=== PATIENT | female | born 1985 | race Caucasian/White ===

== ENCOUNTER 2020-05-10 14:19 | Emergency (ER) | payer BC, SELFPAY ==
--- NOTE | 2020-05-10 14:21 | ED.GENADULT ---
HPI - General Adult General Chief complaint: Chest Pain Stated complaint: chest papalations Time Seen by Provider: 05/10/20 14:21 Source: patient Mode of arrival: ambulatory Limitations: no limitations History of Present Illness HPI narrative: 34-year-old female patient presents to the [facility] with complaints of chest pain, lightheadedness, dizziness and palpitations. Patient states that it started yesterday was intermittent, however today has been more consistent and states that she feels lightheaded, dizzy, nausea and feels kind of clammy. Patient states that her was positive for Covid and they are actually on the last day of quarantine. Patient states she has tested negative but that was early in her quarantine and feels like she might have Covid. Patient denies any vomiting or diarrhea. Denies any shortness of breath or cough. Denies fevers. Related Data Home Medications Medication Instructions Recorded Confirmed No Home Medications 05/10/20 05/10/20 Allergies Allergy/AdvReac Type Severity Reaction Status Date / Time codeine Allergy Unknown Verified 02/05/10 13:51 Review of Systems Review of Systems: Narrative: CONSTITUTIONAL: Denies fever, chills, or sweats. Positive clammy and sweaty EYES: Denies visual changes, redness, or discharge. ENT: Denies rhinorrhea, congestion, sore throat, or otalgia. CARDIOVASCULAR: Positive midsternal chest pain, positive palpitations, denies edema. RESPIRATORY: Denies cough or dyspnea. GASTROINTESTINAL: Denies abdominal pain, positive nausea, denies vomiting, or diarrhea. GENITOURINARY: Denies dysuria or hematuria. SKIN: Denies rash or itching. MUSCULOSKELETAL: Denies back pain, joint pain, or myalgia. NEUROLOGIC: Denies headache, numbness, or weakness. Positive lightheadedness and dizziness PSYCHIATRIC: Denies anxiety or depression. [facility] Past Medical History Medical History (Updated 05/10/20 @ 14:51 by ERROL Carlisle) Fracture Left distal radius ulnar in 2010 Surgical History Surgical History (Updated 05/10/20 @ 14:26 by ERROL Carlisle) History of orthopedic surgery Left wrist History of tonsillectomy Family History Family History Mother Family history of lupus erythematosus Social History Social History Smoking status: Never smoker Alcohol intake: current Comments At the time of my signature I agree with nursing past medical history, surgical, social, and family history. There is no relevant family history pertinent to the presenting complaint. Exam Narrative: Exam Narrative: GENERAL: Well-appearing, well-nourished, and in no acute distress. HEAD: Normocephalic, atraumatic. EYES: PERRLA and EOMI. ENT: Nares clear, no rhinorrhea or epistaxis. Mucous membranes moist. Posterior pharynx with no erythema, tonsillectomy, exudates or lesions present. Bilateral TMs are clear with no erythema or foreign bodies in the canal. NECK: Supple. No lymphadenopathy CHEST: Clear to auscultation. No respiratory distress. Patient able talk in clear complete sentences. No tripoding noted. HEART: Regular rate and rhythm. No murmur heard. Normal peripheral pulses. ABDOMEN: Soft, nontender, nondistended, normal active bowel sounds. EXTREMITIES: Normal range of motion. No edema. SKIN: Warm, dry, no rash. NEURO: No focal deficits. Alert and oriented x3. Course Vital Signs Vital signs: Vital Signs Temperature 36.6 C 05/10/20 14:36 Pulse Rate 88 05/10/20 14:36 Respiratory Rate 05/10/20 14:36 Blood Pressure 146/72 H 05/10/20 14:36 Pulse Oximetry 99 05/10/20 14:36 Temperature 36.6 C 05/10/20 14:36 Pulse Rate 88 05/10/20 14:36 Respiratory Rate 05/10/20 14:36 Blood Pressure 146/72 H 05/10/20 14:36 Pulse Oximetry 99 05/10/20 14:36 Vital signs reviewed The patient has been informed that they may hav
[2020-05-10 14:36] VITALS: BP 146/72; PULSE 88; RESP 20; TEMP 36.6; O2SAT 99
--- NOTE | 2020-05-10 14:42 | ECG_ITS ---
Measurements Intervals Nelson Rate: 65 P: 65 MS: 159 QRS: 67 QRSD: 95 T: 57 QT: 360 QTc: 375 Interpretive Statements SINUS RHYTHM WITH SINUS ARRHYTHMIA BASELINE ARTIFACT- V6 NORMAL ECG Electronically Signed On 05-11-2020 7:53:16 HAND ALTERATIONS TAILOR by Noe Arenas D.O.
--- NOTE | 2020-05-10 14:44 | PC.NURSE ---
Pallavi ESPINOZA called [facility] with report
[2020-05-10] MEDS: ASPIRIN 81 MG CHEWABLE TABLET 324 MG PO (14:48)
--- NOTE | 2020-05-10 14:49 | PC.NURSE ---
appropriate paperwork for transfer signed report called to Margarita FENTON
== END 2020-05-10 14:53 | disposition short-term general hospital (02) ==
PROVIDERS: Emergency Provider Nurse Practitioner Family; PCP Family Medicine
DX: R07.9 Chest pain, unspecified (principal)
CPT/HCPCS: 93005; 99213; A9270; G0463

== ENCOUNTER 2022-03-21 10:08 | Emergency (ER) | payer BC, SELFPAY ==
[2022-03-21 10:41] VITALS: BP 140/70; PULSE 79; RESP 18; TEMP 36.8; O2SAT 100
--- NOTE | 2022-03-21 10:51 | ED.GENADULT ---
HPI - General Adult General Chief complaint: Anxiety Stated complaint: hot flashes,chills Time Seen by Provider: 03/21/22 10:52 Source: patient and RN notes reviewed Mode of arrival: ambulatory Limitations: no limitations History of Present Illness HPI narrative: 36-year-old female presents to the [facility] with complaints of feeling like her heart is racing intermittently but states her Apple watch her heart rate is normal. Finds that her mind is racing. reports hot flashes. Symptoms started yesterday. Denies any increased stress in life. Denies any recent is to be depressed. Denies suicidal or homicidal thoughts. States when she is at rest the symptoms are worse. Patient denies any chest pain, abdominal pain. Denies any fevers. Has an appointment tomorrow at 9:[address] Joaquin is office. Related Data Home Medications Medication Instructions Recorded Confirmed No Home Medications 05/10/20 03/21/22 Allergies Allergy/AdvReac Type Severity Reaction Status Date / Time codeine Allergy Unknown Verified 03/21/22 10:50 Review of Systems Review of Systems: All systems reviewed & are unremarkable except as noted in HPI and below Constitutional: Constitutional: Reports no additional constitutional complaints, Denies chills and Denies fever(s) Eyes: Eyes: Reports no additional eye complaints ENT: Reports system reviewed and no additional complaints, except as documented Cardiovascular: Cardiovascular: Reports no additional cardiovascular complaints Respiratory: Respiratory: Reports no additional respiratory complaints Gastrointestinal: Gastrointestinal: Reports no additional gastrointestinal complaints Musculoskeletal: Musculoskeletal: Reports no additional musculoskeletal complaints Integumentary/Breasts: Skin/Breast: Reports system reviewed and no additional complaints, except as docu Neurologic: Reports system reviewed and no additional complaints, except as documented Psychiatric: Psychiatric: Reports as per HPI, Reports anxiety, Reports difficulty concentrating, Denies hopelessness, Denies irritability, Reports panic attacks, Denies homicidal ideation and Denies suicidal ideation Allergic/Immunologic: Allergic/Immunologic: Reports no additional allergic/immunologic complaints [facility] Past Medical History Medical History (Updated 03/21/22 @ 11:06 by Asia Terry APRN) Exposure to COVID-19 virus Fracture Left distal radius ulnar in 2009 Surgical History Surgical History History of orthopedic surgery Left wrist History of tonsillectomy Family History Family History Mother Family history of lupus erythematosus Social History Social History Smoking status: Never smoker Alcohol intake: current Comments At the time of my signature, I reviewed and agree with the nursing past medical, surgical, social, and family history. There is no relevant family history pertinent to the patient complaint. Exam Const: General: healthy appearing, no acute distress, alert and well nourished Nutritional Appearance: well nourished Orientation/consciousness: patient oriented x3 Limitations: no limitations HENMT: Head: normal to inspection Ears: external ears normal, TM's normal bilaterally and EAC's normal Mouth: Yes Normal oral and palatal mucosa present, Yes lip normal and Yes moist mucous membranes Throat: posterior oropharynx normal and uvula midline Eyes: General: appearance normal, both eyes and all related structures Conjunctivae: conjunctivae normal Pupils: Equal, round and reactive pupils present Neck: Neck: normal visual inspection, no lymphadenopathy and no meningeal signs Chest: Chest palpation & inspection: normal inspection of the chest Resp: Effort & Inspection: normal respiratory effort and no use of acce
== END 2022-03-21 11:10 | disposition home or self-care (01) ==
PROVIDERS: Emergency Provider Nurse Practitioner; PCP Family Medicine
DX: F41.9 Anxiety disorder, unspecified (principal); Z86.16 Personal history of COVID-19
CPT/HCPCS: 99211; G0463

== ENCOUNTER 2023-05-06 16:26 | Emergency (ER) | payer BC, SELFPAY ==
--- NOTE | 2023-05-06 16:50 | ED.URI ---
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 She reports she has had a cough recently without has gotten better. She reports chills today. She denies fever, sweats. Denies body aches or shortness of breath. She took Sudafed, Tylenol, ibuprofen MD elicited complaint: sore throat Related Data Home Medications Medication Instructions Recorded Confirmed norethindrone 1 mg-ethinyl 1 tablet PO DAILY 05/06/23 05/06/23 estradiol 20 mcg (24)-iron 75 mg (4) tablet () Allergies Allergy/AdvReac Type Severity Reaction Status Date / Time codeine AdvReac Intermediate Vomiting Verified 05/06/23 17:03 Review of Systems Review of Systems: CONSTITUTIONAL: Denies malaise, sweats, or fever. Reports chills EYES: Denies visual changes, redness, or discharge. ENT: Reports rhinorrhea, congestion, and sore throat. CARDIOVASCULAR: Denies chest pain, palpitations, or edema. RESPIRATORY: Denies cough. Denies dyspnea. GASTROINTESTINAL: Denies abdominal pain, nausea, vomiting, diarrhea SKIN: Denies rash or itching. MUSCULOSKELETAL: Denies myalgia. NEUROLOGIC: Denies headache. All systems reviewed & are unremarkable except as noted in HPI and below PMF[facility] Past Medical History Medical History (Updated 05/06/23 @ 17:26 by Asia Diane NP) Anxiety BMI 26.0-26.9,adult Encounter to establish care Exposure to COVID-19 virus Fracture Left distal radius ulnar in 2009 Wellness examination Surgical History Surgical History History of orthopedic surgery Left wrist History of tonsillectomy Family History Family History (Updated 03/22/22 @ 08:41 by Gisselle Velásquez Deshawn) Mother Family history of lupus erythematosus Hypertension Depression Anxiety Thyroid disease Sibling Anxiety Depression Grandparent Family history of lupus erythematosus Anxiety Depression Social History Social History (Updated 03/22/22 @ 08:42 by Gisselle Velásquez [facility]) Smoking status: Never smoker Alcohol intake: current Drinks per week: 1 Substance use: never Substance use type: does not use Lack of Transportation: No Lack of Food: Never True Current Housing: I Have Housing Concerned About Future Housing: No Difficulty Paying Gas/Electric Bills: No Difficulty Paying for Meds: No Currently Unemployed: No Education: Master's Degree or Higher Difficulty w/ Childcare or Family Care: No Comments At time of signature, agree with nursing past medical, surgical, social and family history. There is no relevant family history pertinent to the presenting complaint Exam Narrative: GENERAL: Well-appearing, well-nourished, and in no acute distress. HEAD: Normocephalic EYES: PERRLA, conjunctivae clear ENT: Nares clear, turbinates edematous and erythematous, clear discharge. Mucous membranes moist. TM pearly bonilla with dull light reflex on the right, sharp on the left; no tragal tenderness. Oropharynx not erythematous without lesions. Tonsils not enlarged and without exudate, no drooling, no hoarseness, no trismus, uvula midline. NECK: Supple. No lymphadenopathy CHEST: Clear to auscultation, breath sounds equal. No wheezing, rhonchi, rales, or stridor. No respiratory distress, speaks in full sentences. HEART: Regular rate and rhythm. No murmur heard. SKIN: Warm, dry, no rash. NEURO: Alert and oriented x3. PSYCH: Normal mood and affect Course Course Emergency Course: Patient is aware of diagnosis, understands and agrees to treatment plan. Anticipatory guidance given. Patient agrees to follow-up as
[2023-05-06 17:08] VITALS: BP 136/69; PULSE 70; RESP 16; TEMP 36.4; O2SAT 100
== END 2023-05-06 17:30 | disposition home or self-care (01) ==
PROVIDERS: Emergency Provider Nurse Practitioner; PCP Internal Medicine
DX: J06.9 Acute upper respiratory infection, unspecified (principal); Z20.822 Contact with and (suspected) exposure to COVID-19
CPT/HCPCS: 87081; 87426; 87804; 87880; 99213; C9803; G0463

== ENCOUNTER 2024-09-02 00:44 | Day surgery (SDC) | payer OTHER, SELFPAY ==
[2024-08-19 16:02] VITALS: BMI 28.2
--- NOTE | 2024-08-19 16:05 | SUR.PREOP ---
Report to the Outpatient Waiting Room, entrance under the green pavilion located off [facility], at time _0600_ on date _09/02/2024_. Planned Procedure Time: _0730_.? Time changes happen often and if your time is changed the preop area will call you the afternoon before. - You and your visitor will be asked to self-screen and do not enter if you have any COVID symptoms. Please call surgeon if you need to reschedule. - A mask is optional within the hospital at this time. Patients may have clear liquids (water, carbonated beverages, clear teas, apple juice) until 3 hours prior to surgery with a maximum of 20 ounces. - No food from midnight until time of surgery and no smoking, or chewing tobacco (or any form of nicotine). No chewing gum, candy or mints. - Infants may have breast milk until 4 hours before surgery, infant formula 6 hours prior to surgery. - Children will be allowed to drink immediately following surgery.? If applicable, please bring a bottle or sippy cup to assist with drinking. Juice, water, soda, and popsicles are readily available.? For infants on formula, please bring formula the day of surgery.? Pacifiers are allowed. Take only the following medications with a SIP of water on the morning of surgery: _bupropion, control_ DO NOT STOP ANY OF YOUR OTHER PRESCRIPTION MEDICATIONS PRIOR TO SURGERY EXCEPT THE FOLLOWING Hold all vitamins and supplements for 3 days per anesthesiologist. Medications to discontinue per physician _NA_ Date to take last dose_NA_ Please no make-up, nail malian, hairspray, perfume, deodorant, or body powder the day of surgery.? No jewelry (including any body piercings) or valuables the day of surgery, leave them at home.? Please take a shower or bath the night before, or the morning of, surgery with an antibacterial soap.? Wear comfortable, loose fitting clothing.? Children are encouraged to wear pajamas. - Jewelry must be removed prior to entering the operating room.? Rings and piercings that are not removed may be cut off. - The hospital will not accept responsibility for valuables.? - Please leave all valuables, including medications, at home the day of surgery. If you are going home after surgery, a licensed coach driver must drive you home.? - NO public transportation without another adult if you receive anesthesia. - We recommend that an adult stay with you for 24 hours following discharge. - We also recommend that you do not drive, make important decision, drink alcoholic beverages, or take any drugs that were not prescribed by your health care provider for at least 24 hours after your discharge time. For Pediatric surgeries, we recommend two adults accompany the child home. Follow any additional instructions given to you from your surgeon. Telephone instructions given to _Tiffanie_and asked if any additional questions and then verbalized understanding. Patient advised to call surgeon office or pre surgery nurse liaison [phone] if any additional questions.
[2024-09-02] VITALS (11 sets, daily range): BP systolic 97–140; BP diastolic 46–81; PULSE 61–110; RESP 14–18; TEMP 36.4–37.1; O2SAT 98–100; BMI 28.3
--- OUTSIDE RECORDS SUMMARY | 2024-09-02 00:46 | XMS_ITS | Clinical Summary ---
Author Organization [facility] Address [address] [place] [address] Care Team Providers Care Cold Type Composing Machine Operator Name Role Phone Kahlil Joaquin MD Primary Care Provider [phone] Source Comments [facility],non-owned Affiliates and Associated Physician Practices is amultiple site organization consisting of ambulatory clinics and hospital sitesin [place], [place], [place] and [place]. This disclosure is being madepursuant to the Care Everywhere program and may not contain all information available regarding this patient. Last updated 18.[facility] Allergies No known active allergies Medications * Be aware that medications may not be up to date on this document. Alwaysverify current medications with the patient. levonorgestrel (MIRENA) 20 MCG/24HR IUD 1 Device by Intrauterine route as directed Active Family History Medical History Relation Name Comments Lupus Mother Relation Name Status Comments Father Alive Mother Alive Social History Tobacco Use Types Packs/Day Years Used Date Smoking Tobacco: Never Smokeless Tobacco: Never Comments No Sex and Gender Information Value Date Recorded Sex Assigned at Not on file Legal Sex Female 9:56 AM CDT Gender Identity Not on file Sexual Orientation Not on file Last Filed Vital Signs Vital Sign Reading Time Taken Comments Blood Pressure 122/78 11/07/2016 10:43 AM CDT Pulse 66 11/07/2016 10:43 AM CDT Temperature 36.9 C (98.5 F) 11/07/2016 10:43 AM CDT Respiratory Rate 16 11/07/2016 10:43 AM CDT Oxygen Saturation 99% 11/07/2016 10:43 AM CDT Inhaled Oxygen Concentration - - Weight 72.6 kg (160 lb) 11/07/2016 10:43 AM CDT Height 160 cm (5' 3 ) 11/07/2016 10:43 AM CDT Body Mass Index 28.34 11/07/2016 10:43 AM CDT Plan of Treatment Health Maintenance Due Date Last Done Comments PAP SMEAR 1984 HIV SCREENING 12/17/1999 HEPATITIS C SCREENING 12/12/2002 DTAP/TDAP/TD VACCINES (1 - Tdap) 12/17/2003 HEPATITIS B VACCINE (1 of 3 - 19+ 3-dose series) 12/17/2003 COVID-19 VACCINE (1 - 2023-2 5 season) 2024 DEPRESSION SCREENING 05/19/2024 INFLUENZA VACCINE (Season Ended) 2025 ZOSTER VACCINE (1 of 2) 2034 HIB VACCINE Aged Out No longer eligi ble based on patient's age to complete this topic HPV VACCINE Aged Out No longer eligi ble based on patient's age to complete this topic MENINGOCOCCAL (Group B) VACC INE SHARED DECISION-MAKING Aged Out No longer eligibl e based on patient's age to complete this topic MENINGOCOCCAL GROUPS A/C/Y/W VACCINE Aged Out No longer eligible b ased on patient's age to complete this topic PNEUMOCOCCAL VACCINE Aged Out No long er eligible based on patient's age to complete this topic Insurance [employer] Care Teams Cold Type Composing Machine Operator Relationship Specialty Start Date End Date Kahlil Joaquin MD PCP - General Family Medicine 11/07/16
--- OUTSIDE RECORDS SUMMARY | 2024-09-02 00:46 | XMS_ITS | Referral Summary ---
Author Organization [facility] Address [address] [place] [id number] Care Team Providers Care Loaf Counter Name Role Phone Betty Bernard MD Primary Care Provider [phone] Allergies No known active allergies Medications buPROPion XL (WELLBUTRIN XL) 150 mg 24 hr tablet Take 1 tablet (150 mg total) by mouth every morning 90 tablet 3 4 02/03/20 25 Active norethindrone-e .estradioL-iron (LOESTIN 24 FE) 1 mg-20 mcg (24)/75 mg (4) per tablet Take 1 tablet by mouth continuously Skipping placebos 84 tablet 4 4 Active Active Problems Problem Noted Date Diagnosed Date B12 deficiency 06/23/2023 Low vitamin D level (24) 06/23/2023 Overview (06/23/2023): vit d 1000IU daily Family history of thyroid disease 04/29/2023 Palpitations 04/29/2023 Generalized anxiety disorder 04/23/2022 Menorrhagia with regular cycle 04/23/2022 Abnormal uterine bleeding (AUB) 09/03/2017 Immunizations Immunization Administration Dates Next Due Influenza, Unspecified 04/29/2023(Deferred: Elizabeth ent Refused) Social History Tobacco Use Types Packs/Day Years Used Date Smoking Tobacco: Never Cigarettes Smokeless Tobacco: Never Alcohol Use Standard Drinks/Week Comments Yes 0 (1 standard drink = 0.6 oz pur e alcohol) socially AUDIT-C Answer Date Recorded Q1: How often do you have a drink containing alc ohol? Monthly or less 04/29/2023 Average Number of Drinks Not on file 023 Q3: How often do you have si x or more drinks on one occasion? 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 Gender Identity Not on file Sexual Orientation Not on file Last Filed Vital Signs Vital Sign Reading Time Taken Comments Blood Pressure 122/72 02/03/2024 1:43 PM CDT Pulse 67 06/23/2023 4:16 PM THERMITE BOMB LOADER Temperature 36.8 C (98.2 F) 06/23/2023 4:16 PM THERMITE BOMB LOADER Respiratory Rate 18 06/23/2023 4:16 PM THERMITE BOMB LOADER Oxygen Saturation 97% 06/23/2023 4:16 PM THERMITE BOMB LOADER Inhaled Oxygen Concentration - - Weight 72.1 kg (159 lb) 02/03/2024 1:43 PM CDT Height 160 cm (5' 2.99 ) 02/03/2024 1:43 PM CDT Body Mass Index 28.17 02/03/2024 1:43 PM CDT Plan of Treatment Not on file Procedures Procedure Name Priority Date/Time Associated Diagnosis Comments HIGH RISK HPV DNA DETECTION WITH GENOTYPING Routine 02/03/2024 2:28 PM CDT Well woman exam from Last 3 Months or Most Recently Relevant to Health Maintenance Results * High Risk HPV DNA Detection with Genotyping (Molecular component) (02/03/2024 2:28 PM CDT) HPV HR 16 Not Detected Not Detected [facility] Comment:Testing performed by : [facility], [address] [place]., [address] HPV HR 18 Not Detected Not Detected [facility] Comment:Testing performed by : [facility], [address] [place]., [address] HPV HR Non 16/18 Not Detected Not Detected [facility] Comment: Interpretive Data Nucleic acid amplification for detection of high-risk Human Papilloma virus (HPV) is performed by the Fe Chris 6800 HPV test. This assay specifically detects HPV-16 and HPV-18 genotypes. The following HPV genotypes are detected as high-risk HPV: HPV-31, 33, 35, ,39, 45, 51, 52, 56, 58, 59, 66, and 68. This assay has been approved by the [place] Food and Drug Administration for detection of HPV in cervical specimens collected by a physician using an endocervical brush/spatula or cervical broom and placed in the ThinPrep Pap Test PreservCyt collection containers. The performance characteristics of this test have been verified by the [facility] Infectious Disease laboratory. Correlate with separately reported cytology results, as applicable. Interpretive data last revised 22 Testing performed by: [facility], [address] [place]., [address] Endocervical 02/03/2024 2:28 PM CDT 02/04/2024 11:45 AM CDT [facility] 02/04/2024 11:56 PM CDT Clinical history and diagnosis->routine Number of vials->1 Testing type->Screening Last menstrual period (date if known)->Unknown Paula Caruso MD LAB BODY FLUIDS AND STOOLS ORDERABLES Final Result [facility] [address] [facility] Department [place] [address] [facility] from Last 3 Months or Most Recently Relevant to Health Maintenance Insurance [facility] [place] [id number] Care Teams Loaf Counter Relationship Specialty Start Date End Date Betty Bernard MD PCP - General Internal Medicine 04/29/23
--- OUTSIDE RECORDS SUMMARY | 2024-09-02 00:46 | XMS_ITS | Encounter Summary ---
Author Organization [facility] Facility Care Team Providers Care Manager Gaming Name Role Phone Kahlil Joaquin MD Primary Care Provider [phone] Betty Bernard MD Primary Care Provider [phone] Encounter Details Date Type Department Care Team (Latest Contact Info) Description 10/16/2017 Orders Only [facility] CLINCONV ProviderMary MD [address] [place] [id number] Social History Tobacco Use Types Packs/Day Years Used Date Smoking Tobacco: Never Assessed Comments Unknown Sex and Gender Information Value Date Recorded Sex Assigned at Not on file Legal Sex Female 1:17 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 Historical Provider Final Res ult * SCAN - PATHOLOGY (10/16/2017 12:00 AM CDT) Narrative 10/16/2017 12:00 AM CDT Ordered by an unspecified provider. Historical Provider Final Res ult documented in this encounter Visit Diagnoses Not on filedocumented in this encounter Care Teams Manager Gaming Relationship Specialty Start Date End Date Kahlil Joaquin MD [address] [address] PCP - General Family Medicine 01/15/19 04/28/23 Betty Bernard MD [address] [address] PCP - General Internal Medicine 04/29/23 documented as of this encounter
--- OUTSIDE RECORDS SUMMARY | 2024-09-02 00:46 | XMS_ITS | Clinical Summary ---
Author Organization [facility] Address [address] [place] [address] Care Team Providers Care Busgirl Name Role Phone Betty Bernard MD Primary Care Provider [phone] Allergies No known active allergies Medications buPROPion [...] Due Influenza, Unspecified 04/29/2023(Deferred: Elizabeth ent Refused) Surgical History Surgery Date Site/Laterality Comments TUBAL LIGATION WRIST SURGERY 01/17/2010 Left left wrist fx Medical History Medical History Date Comments Migraines Anxiety February 2022 Family History Medical History Relation Name Comments Anemia Mother German Gastelum Miscarriages / Stillbirths Sister 2 Lona Kopylts ov Breast cancer Neg Hx Ovarian cancer Neg Hx Relation Name Status Comments Father Alive Mother German Gastelum Alive Sister 1 Alive Sister 2 Lona Dawson Son 1 Alive Son 2 Alive Social History Tobacco Use Types Packs/Day [...] on file Legal Sex Female 1:17 AM GRINDER SET UP OPERATOR GEAR TOOL Gender Identity Not on file Sexual Orientation Not on file Obstetrics History Para Term AB IAB SAB Ectopic Multiple Livin g Live Births 2 2 2 2 Date Outcome GA Total Labor Labor/2nd/3rd Weight Sex Type Anes PTL Dhara A1 A5 Name Clin Term Vag-Spo nt Term Vag-Spo nt Comments Menarche: 14 Age at first delivery: 25 Last Filed Vital Signs Vital Sign Reading Time Taken Comments Blood Pressure 122/72 02/03/2024 1:43 PM CDT Pulse 67 06/23/2023 4:16 PM GRINDER SET UP OPERATOR GEAR TOOL Temperature 36.8 C (98.2 F) 06/23/2023 4:16 PM GRINDER SET UP OPERATOR GEAR TOOL Respiratory Rate 18 06/23/2023 4:16 PM GRINDER SET UP OPERATOR GEAR TOOL Oxygen Saturation 97% 06/23/2023 4:16 PM GRINDER SET UP OPERATOR GEAR TOOL Inhaled Oxygen Concentration - - Weight 72.1 kg (159 lb) 02/03/2024 1:43 PM CDT Height 160 cm (5' 2.99 ) 02/03/2024 1:43 PM CDT Body Mass Index 28.17 02/03/2024 1:43 PM CDT Plan of Treatment Health Maintenance Due Date Last Done Comments Hepatitis C Screening 1984 Varicella Vaccines (1 of 2 - 13+ 2-dose series) 1997 Hepatitis B Screening 2002 Covid-19 Vaccine (3 - 2023-2 5 season) 2024 01/15/2021, 12/15/2020 Influenza Vaccine (#1) 2024 Depression Screening 06/23/2024 06/23/2023, 04/29/2023 DTaP/Tdap/Td Vaccine (1 - Tdap) 11/30/2024 Postponed from 12/16 (Patient declined, but will receive in the future) Cervical Cancer Screening 02/02/20252023, 02/03/2024, 01/26/2020 Regular Well Visit/Exam 18-64 02/02/2025, 04/22/2022, 01/26/2020 HPV Vaccines Aged Out No longer eligi ble based on patient's age to complete this topic Pneumococcal vaccine <65 Aged Out No longer eligible based on patient's age to complete this topic Procedures Procedure Name Priority Date/Time Associated Diagnosis Comments HIGH RISK HPV DNA DETECTION WITH GENOTYPING Routine 02/03/2024 2:28 PM CDT Well woman exam from Last 3 Months or Most Recently Relevant to Health Maintenance Results * High Risk HPV DNA Detection with Genotyping (Molecular component) (02/03/2024 2:28 PM CDT) HPV HR 16 Not Detected Not Detected [facility] Comment:Testing performed by : [facility], [address] [place]., [address] HPV HR 18 Not Detected Not Detected [facility] Comment:Testing performed by : [facility], [address] [place] [address] HPV HR Non 16/18 Not Detected Not [...] this test have been verified by the [facility] Molecular Infectious Disease laboratory. Correlate with separately reported cytology results, as applicable. Interpretive data last revised 22 Testing performed by: [facility], [address] [place]., [address] Endocervical 02/03/2024 2:28 PM CDT 02/04/2024 11:45 AM CDT Narrative [facility] 02/04/2024 11:56 PM CDT Clinical history and diagnosis->routine Number of vials->1 Testing type->Screening Last menstrual period (date if known)->Unknown Paula Caruso MD LAB BODY FLUIDS AND STOOLS ORDERABLES Final Result Performing Organization Address City/State/[facility] Co de Phone Number [facility] [address] [facility] Department [place] [address] [facility] from Last 3 Months or Most Recently Relevant to Health Maintenance Insurance [facility] Care Teams Busgirl Relationship Specialty Start Date End Date Betty Bernard MD PCP - General Internal Medicine 04/29/23
--- OUTSIDE RECORDS SUMMARY | 2024-09-02 00:46 | XMS_ITS | Clinical Summary ---
Author Organization [facility] Address [address] [place] [id number] Care Team Providers Care Vegetable Packer Name Role Phone Unavailable Primary Care Provider Unavailabl e Encounters Date Type Department Care Team Description 08/31/2024 External Device Data [facility] ABSTRACTION Provider, Abstract 08/04/2024 External Device Data [facility] ABSTRACTION Provider, Abstract 08/04/2024 External Device Data [facility] ABSTRACTION Provider, Abstract 07/24/2024 External Device Data [facility] ABSTRACTION Provider, Abstract 07/23/2024 External Device Data [facility] ABSTRACTION Provider, Abstract 07/21/2024 External Device Data [facility] ABSTRACTION Provider, Abstract 07/07/2024 External Device Data [facility] ABSTRACTION Provider, Abstract 06/15/2024 External Device Data [facility] ABSTRACTION Provider, Abstract 06/09/2024 External Device Data [facility] ABSTRACTION Provider, Abstract 06/09/2024 External Device Data [facility] ABSTRACTION Provider, Abstract from Last 3 Months Social History Tobacco Use Types Packs/Day Years Used Date Smoking Tobacco: Never Assessed Comments Unknown Sex and Gender Information Value Date Recorded Sex Assigned at Not on file Legal Sex Female 7:12 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 Gender Identity Not on file Sexual Orientation Not on file Plan of Treatment Health Maintenance Due Date Last Done Comments Pre-Diabetes and Diabetes Screening 1984 DTAP/TDAP/TD VACCINES (1 - Tdap) 12/17/2003 HEPATITIS B VACCINES (1 of 3 - 19+ 3-dose series) 12/17/2003 HPV/Cotest (21-29) 2005 HPV/Cotest (30-65) 2014 INFLUENZA VACCINE (#1) 2023 CERVICAL CANCER SCREENING 02/02/2027 PAP SMEAR 02/02/2027 02/03/2024 PAP SMEAR 02/02/2027 02/03/2024 HPV VACCINES Aged Out No longer eligi ble based on patient's age to complete this topic PNEUMOCOCCAL VACCINE 0-49 YEARS Aged Out No longer eligible based on patient's age to complete this topic Insurance [facility] OPTIONS PPO [id number] [place] [id number]
--- OUTSIDE RECORDS SUMMARY | 2024-09-02 00:46 | XMS_ITS | Encounter Summary ---
Author Organization [facility] Address 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
--- NOTE | 2024-09-02 06:41 | WPDANESEPPF ---
Anes - Initial Pre Proc Eval Procedure: Operation Date: 09/02/24 07:30 Proposed Procedures p Bilateral Breast Augmentation - Balwinder Frankel MD Date/Time: 09/02/24 06:41 Surgeon: Balwinder Frankel MD Pre Op Diagnosis: micromastia Patient Data Age: 38 Gender: F Height: 1.6 m Weight: 72.6 kg Last Vital Signs Temp 37.1 C 09/02/24 06:37 Pulse 71 09/02/24 06:37 Resp 14 09/02/24 06:37 BP 122/79 09/02/24 06:37 Pulse Ox 100 09/02/24 06:37 Allergies Allergy/AdvReac Type Severity Reaction Status Date / Time codeine AdvReac Intermediate Nausea and Verified 09/02/24 06:30 Vomiting Home Medications ?Medication ?Instructions ?Recorded ?Confirmed ?Type norethindrone 1 mg-ethinyl 1 tablet PO DAILY 05/06/23 09/02/24 History estradiol 20 mcg (24)-iron 75 mg (4) tablet (June Fe 24) bupropion HCl 150 mg 24 hr tablet, 150 mg PO DAILY 08/19/24 09/02/24 History extended release Patient hx anesthesia problems: none Family hx anesthesia problems: none Results Review: All pre-operative results and documents have been reviewed as part of the pre-operative evaluation. [facility] Past Medical History Medical History BMI 26.0-26.9,adult Encounter to establish care Anxiety Wellness examination Exposure to COVID-19 virus Fracture Left distal radius ulnar in 2009 Surgical History Surgical History History of orthopedic surgery Left wrist History of tonsillectomy Family History Family History Mother Family history of lupus erythematosus Hypertension Depression Anxiety Thyroid disease Sibling Anxiety Depression Grandparent Family history of lupus erythematosus Anxiety Depression Social History Social History Smoking status: Never smoker Second hand tobacco smoke exposure: No Alcohol intake: current Drinks per week: 1 Alcohol use details: OCCASIONAL Substance use: never Substance use type: does not use Lack of Transportation: No Lack of Food: Never True Current Housing: I Have Housing Concerned About Future Housing: No Difficulty Paying Gas/Electric Bills: No Difficulty Paying for Meds: No Currently Unemployed: No Education: Master's Degree or Higher Difficulty w/ Childcare or Family Care: No Living arrangements: with family Additional living arrangements comments: and children Spiritual care concerns: No Anes - Eval Final PreProcedure Day of Procedure 09/02/24 06:41 Patient weight: overweight Heart: regular rate and rhythm Lungs: clear to auscultation Airway: Mallampati scale class II Neurological: alert and oriented Last oral intake: >/= 8 hours ASA classification: II Emergent: no Anesthetic plan: proceed Anesthesia type and monitoring: general LMA and standard monitoring Results Review: All pre-operative results and documents have been reviewed as part of the pre-operative evaluation. Informed Consent: The patient's anesthetic plan and its attendant risks and benefits were discussed with the patient/family/POA. Questions were solicited and answers provided to the satisfaction of the patient/family/POA.
[2024-09-02] MEDS: SCOPOLAMINE 1 MG PATCH 1 PATCH TRANSDERM (06:52)
[2024-09-02] MEDS: TRANEXAMIC ACID 1,000MG/ISO100 1,000 MG/100 ML BAG 200 MG IVPB (06:53)
[2024-09-02] MEDS: LACTATED RINGERS 1,000 ML 30 ML IV CONT ×3 (06:53→10:06)
[2024-09-02 07:11] LABS: BEDSIDEPREGUCG Negative (Negative)
--- NOTE | 2024-09-02 07:18 | WPDHPUPDATE1 ---
History and Physical Update Update Date/Time: 09/02/24 07:18 History and Physical has been reviewed, including an updated exam of the patient. There are NO changes in the patient's condition. Risks, benefits, and alternatives have been discussed and questions answered. Patient agrees to proceed with procedure.
--- NOTE | 2024-09-02 07:18 | W.PM.PROC2 ---
Procedure Note - Detailed Date of Procedure 09/02/24 Pre-op Diagnosis micromastia Post-op Diagnosis Same Procedure Performed Bilateral augmentation mammaplasty Surgeon Balwinder Frankel MD Anesthesia General Findings Bilateral Stephen Morrissey SoftTouch 400cc Subfascial Right: REF# [id number] SN [id number] Left: REF# [id number] SN [id number] Description of Procedure She is here today for bilateral breast augmentation. Previously and again today the risks, benefits, alternatives were discussed in extensive detail. I wanted her to be very realistic about the risks involved as well as expectations. We discussed aftercare and what to monitor for. Made sure answered all of her questions to her satisfaction today and consent was obtained. Marked in the preoperative holding area with their verification. The patient was taken to the operating room placed supine on the operating table. Anesthesia was provided by anesthesiology. A surgical time-out was taken. We cleansed the skin and 1% lidocaine and 0.25% Marcaine with epinephrine was used anesthetize as a field block. She was prepped and draped in a standard sterile fashion. Tegaderm nipple Herr were placed. A 15 blade used to make an incision along the inframammary fold. Dissection was continued at 45 degree angle until the chest wall as identified. I elevated a subfascial pocket in the appropriate dimensions based on our preoperative planning for the implant. I then copiously irrigated with saline solution and verified a strict hemostasis. Next the use a triple antibiotic and Betadine containing solution to irrigate the pocket. I washed my gloves with the triple antibiotic and Betadine solution. We washed the implant immediately upon opening it with this solution and only opened it when we needed it. I used implant funnel and no-touch technique. The implant was introduced into the pocket using the funnel. Having verified positioning of the implant this was closed using 2-0 PDS followed by 3-0 Monocryl in a running subcuticular 4-0 Monocryl followed by tissue glue. Fluffs and surgical bra were placed. Patient was awoke and taken to PACU without difficulty. All instrument sponge counts were correct at the end of the case. Estimated Blood Loss 20 Drains No Packing No Pathology None sent Complications No immediate complications Condition Stable Disposition PACU
[2024-09-02] MEDS: ceFAZolin 2 GM/D5W 50 ML 2 GM/50 ML BAG IVPB (07:28)
[2024-09-02] MEDS: NACL 0.9% IRRIG POUR BOTTLE 900 ML, GENTAMICIN SULFATE INJ 160 MG, ceFAZolin 2 GM, POVI... IRRIGATION (07:50)
[2024-09-02] MEDS: BUPivacaine HCL 0.25% PF 30 ML VIAL INFILTRATE (07:51)
[2024-09-02] MEDS: LIDO 1%/EPINEPHRINE 1:100,000 20 ML VIAL 30 ML INFILTRATE (07:51)
[2024-09-02] MEDS: fentaNYL CITRATE INJ (*CRX) 100 MCG/2 ML VIAL 25 MCG IV PUSH ×3 (08:58→09:12)
[2024-09-02] MEDS: ONDANSETRON INJ 4 MG/2 ML VIAL IV PUSH (09:25)
[2024-09-02] MEDS: diphenhydrAMINE HCl INJ 50 MG/ML VIAL 25 MG IV PUSH (10:03)
[2024-09-02] MEDS: PROMETHAZINE HCL 25 MG/ML AMPUL 12.5 MG IV PUSH (10:41)
== END 2024-09-02 11:21 | disposition home or self-care (01) ==
PROVIDERS: PCP Internal Medicine; Visit Provider Surgery Plastic and Reconstructive Surgery
PROC: (CPT 19325; principal; 2024-09-02 07:30)
DX: Z41.1 Encounter for cosmetic surgery (principal); N64.82 Hypoplasia of breast; F41.9 Anxiety disorder, unspecified; Z98.890 Other specified postprocedural states; Z98.51 Tubal ligation status
CPT/HCPCS: 19325; A9270; J0690; J1100; J1171; J1200; J1580; J2003; J2004; J2250; J2405; J2550; J2704; J3010; J7030; J7120

== ENCOUNTER 2025-04-13 09:07 | Emergency (ER) | payer OTHER, SELFPAY ==
[2025-04-13 09:18] VITALS: BP 125/81; PULSE 76; RESP 18; TEMP 36.4; O2SAT 100
--- OUTSIDE RECORDS SUMMARY | 2025-04-13 09:33 | XMS_ITS | Clinical Summary ---
Author Organization [facility] Address [address] [place] [phone] Care Team Providers Care Auto Winder Name Role Phone Unavailable Primary Care Provider Unavailabl e Encounters Date Type Department Care Team Description 03/08/2025 External Device Data [facility] ABSTRACTION Provider, Abstract from Last 3 Months Social History Tobacco Use Types Packs/Day Years Used Date Smoking Tobacco: Never Assessed Comments Unknown Sex and Gender Information Value Date Recorded Sex Assigned at Not on file Legal Sex Female 7:12 PM PRICING/SIGNAGE TEAM MEMBER Gender Identity Not on file Sexual Orientation Not on file Plan of Treatment Health Maintenance Due Date Last Done Comments DTAP/TDAP/TD VACCINES (1 - Tdap) 12/17/2003 HEPATITIS B VACCINES (1 of 3 - 19+ 3-dose series) 11/18 HPV/Cotest (21-29) 2005 HPV VACCINES (1 - 3-dose SCDM series) 12/17/2011 HPV/Cotest (30-65) 2014 INFLUENZA VACCINE (#1) 2024 BREAST CANCER SCREENING 05/13/2025 05/13/2024 CERVICAL CANCER SCREENING 02/02/2027 PAP SMEAR 02/02/2027 02/03/2024 Procedures Procedure Name Priority Date/Time Associated Diagnosis Comments MAMMO 3D CLARENCE SCREEN BILAT W OR WO CAD Routine 05/13/2024 9:26 AM PRICING/SIGNAGE TEAM MEMBER Visit for screening mammogram from Last 3 Months or Most Recently Relevant to Health Maintenance Results * MAMMO 3D CLARENCE SCREEN BILAT W OR WO CAD (05/13/2024 9:26 AM PRICING/SIGNAGE TEAM MEMBER) Anatomical Region Laterality Modality Breast Bilateral Mammography 05/13/2024 9:27 AM PRICING/SIGNAGE TEAM MEMBER Impressions 05/13/2024 10:00 AM PRICING/SIGNAGE TEAM MEMBER Impression: No radiographic evidence of malignancy BI-RADS Category: 1 Narrative 05/13/2024 10:00 AM PRICING/SIGNAGE TEAM MEMBER Computer Assisted Detection (CAD) used during interpretation. CC and MLO views of both breasts were obtained. 3D tomosynthesis was also utilized. There is no abnormal mass or grouped microcalcifications present to suggest malignant disease. Breast Density: Scattered areas of fibroglandular densities. us Mammography Self Referral Provider MD ARCENIO MULLIGAN Final Result from Last 3 Months or Most Recently Relevant to Health Maintenance Insurance [facility] OPTIONS PPO [id number]
--- OUTSIDE RECORDS SUMMARY | 2025-04-13 09:33 | XMS_ITS | Clinical Summary ---
Author Organization [facility] Address [address] [place] [phone] Care Team Providers Care Rice Milling Supervisor Name Role Phone Betty Bernard MD Primary Care Provider Allergies Active Allergy Reactions Criticality Noted Date Comments Codeine Nausea & Vomiting High 09/02/2024 Medications buPROPion XL (WELLBUTRIN XL) 150 mg 24 hr tablet Take 1 tablet (150 mg total) by mouth every morning 90 tablet 3 02/08/2025 Active norethindrone-e .estradioL-iron (Aurovela 24 Fe) 1 mg-20 mcg (24)/75 mg (4) per tablet Take 1 tablet by mouth daily 84 tablet 3 02/15/2025 Active Active Problems Problem Noted Date Diagnosed Date Anxiety 02/07/2025 B12 deficiency 06/23/2023 Low vitamin D level (24) 06/23/2023 Overview (06/23/2023): vit d 1000IU daily Family history of thyroid disease 04/29/2023 Palpitations 04/29/2023 Generalized anxiety disorder 04/23/2022 Menorrhagia with regular cycle 04/23/2022 Abnormal uterine bleeding (AUB) 09/03/2017 Encounters Date Type Department Care Team Description 02/09/2025 Orders Only [facility] Obstetrical Gynecology [facility] [facility] [address] [place] [address] Paula Caruso MD KRAIG (stress urinary incontinence, female) (Primary Dx); Dyspareunia in female 02/07/2025 1:00 PM CDT Office Visit [facility] Obstetrical Gynecology [facility] [address] [place] [address] Paula Caruso MD Encounter for screening mammogram for malignant neoplasm of breast (Primary Dx); Night sweats; Dyspareunia, female; Well woman exam; Generalized anxiety disorder; KRAIG (stress urinary incontinence, female) from Last 3 Months Immunizations Immunization Administration Dates Next Due Influenza, Unspecified 04/29/2023(Deferred: Elizabeth ent Refused) Sars-cov-2 Covid-19 Mrna, Bi valent, Original/omicron Ba.1, A 01/15/2021,12/15/2020 Surgical History Surgery Date Site/Laterality Comments TUBAL LIGATION WRIST SURGERY 01/17/2010 Left left wrist fx AUGMENTATION MAMMAPLASTY 09/16/2024 - 10/16/2024 Medical History Medical History Date Comments Migraines Anxiety February 2022 Family History Medical History Relation Name Comments Anemia Mother German Gastelum Miscarriages / Stillbirths Sister 2 Lona Cohen ov Breast cancer Neg Hx Ovarian cancer [...] staff should administer the PHQ-9) 0 06/23/2023 Comments No Sex and Gender Information Value Date Recorded Sex Assigned at Not on file Legal Sex Female 1:17 AM MECHANICAL PIPING DESIGNER Gender Identity Not on file Sexual Orientation [...] Sign Reading Time Taken Comments Blood Pressure 126/82 02/07/2025 12:57 PM CDT Pulse 67 06/23/2023 4:16 PM MECHANICAL PIPING DESIGNER Temperature 36.8 C (98.2 F) 06/23/2023 4:16 PM MECHANICAL PIPING DESIGNER Respiratory Rate 18 06/23/2023 4:16 PM MECHANICAL PIPING DESIGNER Oxygen Saturation 97% 06/23/2023 4:16 PM MECHANICAL PIPING DESIGNER Inhaled Oxygen Concentration - - Weight 72.4 kg (159 lb 9.6 oz) 02/07/2025 12:57 PM CDT Height 160 cm (5' 3) 02/07/2025 12:57 PM CDT Body Mass Index 28.27 02/07/2025 12:57 PM CDT Plan of Treatment Health Maintenance Due Date Last Done Comments Hepatitis C Screening 1984 DTaP/Tdap/Td Vaccine (1 - Tdap) 12/17/1995 Varicella Vaccines (1 of 2 - 13+ 2-dose series) 1997 Hepatitis B Screening 2002 HPV Vaccines (1 - 3-dose SCDM series) 12/17/2011 Depression Screening 06/23/2024 06/23/2023, 04/29/20 23 Covid-19 Vaccine ( season) 2025 01/15/2021, 01/15/2021, 12/15/2020, Additional history exists Influenza Vaccine (#1) 2025 Cervical Cancer Screening 02/02/20252023, 02/03/2024, 01/26/2020 Breast Cancer Screening-Mammogram 05/13/2025 05/13/2024, 05/13/2024 Regular Well Visit/Exam 18-64 02/07/2026 02/07/2025, 02/03/2024, 04/22/2022, Additional history exists Pneumococcal vaccine <65 Aged Out No longer [...] HPV HR 16 Not Detected Not Detected [facility] Comment:Testing performed by : [facility], [address] [place]., [address] HPV HR 18 Not Detected Not Detected [facility] Comment:Testing performed by : [facility], [address] [place]., [address] HPV HR Non 16/18 Not Detected Not [...] this test have been verified by the [facility] Molecular Infectious Disease laboratory. Correlate with separately reported cytology results, as applicable. Interpretive data last revised 22 Testing performed by: [facility], [address] [place]., [address] Endocervical 02/03/2024 2:28 PM CDT 02/04/2024 11:45 AM CDT Narrative [facility]ari 02/04/2024 11:56 PM CDT Clinical history and diagnosis->routine Number of vials->1 Testing type->Screening Last menstrual period (date if known)->Unknown Paula Caruso MD LAB BODY FLUIDS AND STOOLS ORDERABLES Final Result [facility] [address] [facility] Department [place] [address] [facility] from Last 3 Months or Most Recently Relevant to Health Maintenance Insurance [facility] Care Teams Rice Milling Supervisor Relationship Specialty Start Date End Date Betty Bernard MD PCP - General Internal Medicine 04/29/23
--- OUTSIDE RECORDS SUMMARY | 2025-04-13 09:33 | XMS_ITS | Encounter Summary ---
Author Organization [facility] Facility Care Team Providers Care Fractionating Still Operator Name Role Phone Kahlil Joaquin MD Primary Care Provider [phone] Betty Bernard MD Primary Care Provider [phone] Encounter Details Date Type Department Care Team (Latest Contact Info) Description 10/16/2017 Orders Only [facility] CLINCONV ProviderMary MD [address] [place] [address] Social History Tobacco Use Types Packs/Day Years Used Date Smoking Tobacco: Never Assessed Comments Unknown Sex and Gender Information Value Date Recorded Sex Assigned at Not on file Legal Sex Female 1:17 AM SOUR BLEACHING PLEATER Gender Identity Not on file Sexual Orientation [...] on filedocumented in this encounter Care Teams Fractionating Still Operator Relationship Specialty Start Date End Date Kahlil Joaquin MD [address] [address] PCP - General Family Medicine 01/15/19 04/28/23 Betty Bernard MD [address] [address] PCP - General Internal Medicine 04/29/23 documented as of this encounter
--- OUTSIDE RECORDS SUMMARY | 2025-04-13 09:33 | XMS_ITS | Clinical Summary ---
Author Organization [facility] Address [address] [place] [address] Care Team Providers Care Varnish Mixer Name Role Phone Kahlil Joaquin MD Primary Care Provider [phone] Source Comments [facility],non-owned Affiliates and Associated Physician Practices is amultiple site organization consisting of ambulatory clinics and hospital sitesin [place], [place], [place] and [place]. This disclosure is being madepursuant to the Care Everywhere program and may not contain all information available regarding this patient. Last updated 18.[facility] Allergies No known active allergies Medications * [...] 10:43 AM CDT Height 160 cm (5' 3) 11/07/2016 10:43 AM CDT Body Mass Index 28.34 11/07/2016 10:43 AM CDT Plan of Treatment Health Maintenance Due Date Last Done Comments LIPID TESTING 1984 MAMMOGRAM 1984 HIV SCREENING 12/17/1999 HEPATITIS C SCREENING 12/12/2002 DTAP/TDAP/TD VACCINES (1 - Tdap) 12/17/2003 HEPATITIS B VACCINE (1 of 3 - 19+ 3-dose series) 12/17/2003 PAP SMEAR 2005 HPV VACCINE (1 - 3-dose SCDM series) 12/17/2011 Cervical Cancer Screening 2014 PAP with HPV 2014 DEPRESSION SCREENING 05/19/2024 COVID-19 VACCINE (1 - 2024-2 6 season) 2025 INFLUENZA VACCINE (#1) 2025 ZOSTER VACCINE (1 of 2) 2034 [...] complete this topic Insurance [employer] Care Teams Varnish Mixer Relationship Specialty Start Date End Date Kahlil Joaquin MD PCP - General Family Medicine 11/07/16
[2025-04-13 09:39] LABS: EDSTREPNEGPOS1 Negative (Negative)
[2025-04-13 09:48] LABS: EDCOVIDSCREEN Negative (Negative); EDINFLUASCREEN Negative (Negative); EDINFLUBSCREEN Negative (Negative)
--- NOTE | 2025-04-13 09:49 | ED.URI ---
HPI - URI/Sore Throat General Chief Complaint: Upper Respiratory Infection Stated Complaint: sinus/fever Time Seen by Provider: 04/13/25 09:33 Source: patient and RN notes reviewed Mode of arrival: ambulatory Limitations: no limitations History of Present Illness HPI Narrative: 39-year-old female patient presents today complaining of a nasal congestion, bilateral ear pressure, sore throat since yesterday. Currently rates her sore throat 05/28 and has been taking Sudafed without much relief. 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 Related Data Home Medications ?Medication ?Instructions ?Recorded ?Confirmed ?Last Taken ?Type norethindrone 1 mg-ethinyl 1 tablet PO DAILY 05/06/23 09/02/24 09/02/24 History estradiol 20 mcg (24)-iron 75 mg (4) tablet () bupropion HCl 150 mg 24 hr tablet, 150 mg PO DAILY 08/19/24 09/02/24 09/02/24 History extended release Allergies Allergy/AdvReac Type Severity Reaction Status Date / Time codeine AdvReac Intermediate Nausea and Verified 04/13/25 09:22 Vomiting PMFSH Past Medical History Medical History BMI 26.0-26.9,adult Encounter to establish care Anxiety Wellness examination Exposure to COVID-19 virus Fracture Left distal radius ulnar in 2009 Surgical History Surgical History History of orthopedic surgery Left wrist History of tonsillectomy Family History Family History Mother Family history of lupus erythematosus Hypertension Depression Anxiety Thyroid disease Sibling Anxiety Depression Grandparent Family history of lupus erythematosus Anxiety Depression Social History Social History Smoking status: Never smoker Second hand tobacco smoke exposure: No Alcohol intake: current Drinks per week: 1 Alcohol use details: OCCASIONAL Substance use: never Substance use type: does not use Lack of Transportation: No Lack of Food: Never True Current Housing: I Have Housing Concerned About Future Housing: No Difficulty Paying Gas/Electric Bills: No Difficulty Paying for Meds: No Currently Unemployed: No Education: Master's Degree or Higher Difficulty w/ Childcare or Family Care: No Living arrangements: with family Additional living arrangements comments: and children Spiritual care concerns: No Comments At time of signature, I have reviewed and agree with nursing past medical, surgical, social and family history unless otherwise noted. Please see nursing chart for further information. There is no relevant family history pertinent to the presenting complaint Exam Narrative: GENERAL: Mildly ill-appearing, well-nourished, and in no acute distress. HEAD: Normocephalic, atraumatic. EYES: EOMI. No redness or drainage. Conjunctivae normal. ENT: Mucous membranes pink and moist. Nares congested. No rhinorrhea. TMs normal bilaterally. Throat normal. Uvula midline. NECK: Normal AROM. Supple. No lymphadenopathy. CHEST: No respiratory distress. Clear to auscultation. HEART: Regular rate and rhythm. No murmur appreciated. EXTREMITIES: Normal range of motion. No edema. SKIN: Warm, dry, no rash. Capillary refill normal. Normal skin turgor. NEURO: No focal deficits. Alert and oriented x3. Gait steady. PSYCH: Normal affect. No signs of depression or anxiety. Course Course Level of Care: Express Care Visit Vital Signs Vital signs: Vital Signs Temperature 97.6 F 04/13/25 09:18 Pulse Rate 76 04/13/25 09:18 Respiratory Rate 18 04/13/25 09:18 Blood Pressure 125/81 04/13/25 09:18 Pulse Oximetry 100 04/13/25 09:18 Oxygen Delivery Room Air 04/13/25 09:18 Temperature 97.6 F 04/13/25 09:18 Pulse Rate 76 04/13/25 09:18 Respiratory Rate 18 04/13/25 09:18 Blood Pressure 125/81 04/13/25 09:18 Pulse Oximetry 100 04/13/25 09:18 Oxygen Delivery Room Air 04/13/25 09:18 Reviewed MDM - URI/Sore Throat MDM Narrative Medical decision making narrative: 39-year-old female patient presents today complaining of a nasal congestion, bilateral ear pressure, sore throat since yesterday. Currently rates her sore throat 1/10 and has been taking Sudafed without much relief. 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 Upon exam, patient has a mild nasal congestion, remainder of exam is normal. Influenza negative, COVID negative, rapid strep negative. Strep culture pending. Symptoms likely viral in etiology. Discussed [id number] medication use and duration of illness. No prescription medications indicated at this time. Anticipatory guidance given. Vital signs stable. Patient agrees with plan. ED precautions given. Differential Diagnosis Differential diagnosis: Likely upper respiratory infection, otitis media, viral infection, influenza, pharyngitis and other (Strep throat, COVID) Lab Data Attestation: I reviewed the patient's lab results. Labs: Lab Results 04/13/25 04/13/25 Range/Units 09:37 09:46 POC Influenza A Ag Negative (Negative) POC Influenza B Ag Negative (Negative) POC SARS CoV-2 Ag Negative (Negative) POC Grp A Strep Screen Negative (Negative) Critical Care Time Critical Care Time Critical Care Time: No Discharge Plan Discharge Clinical Impression: Upper respiratory infection Qualifiers: URI type: unspecified URI Qualified Code(s): J06.9 - Acute upper respiratory infection, unspecified Patient Disposition: Home Condition: Stable Instructions: Upper Respiratory Infection (DC) Additional Instructions: Your COVID-19, influenza, and rapid strep swabs were negative today at [facility]. You will be notified in a few days if the culture comes back positive for strep, and appropriate antibiotics will be called in for you at that time. Your symptoms are likely due to a viral illness, which is not treated with antibiotics. Viral symptoms can be present for up to 7-10 days. Take Tylenol or ibuprofen for fever or pain. Rest and stay hydrated. Follow up with your PCP in 7-10 days if symptoms are not improving. Go to the ER immediately if you have any difficulty breathing or swallowing. Patient Language: French Prescriptions: No Action 1 mg-20 mcg (24)/75 mg (4) tablet 1 tablet PO DAILY bupropion HCl 150 mg tablet extended release 24 hr 150 mg PO DAILY Follow-up/Referrals: Joana,MD Betty [Primary Care Provider, Unknown] Time of Disposition: 09:53
== END 2025-04-13 10:00 | disposition home or self-care (01) ==
PROVIDERS: Emergency Provider Nurse Practitioner; PCP Internal Medicine
DX: J06.9 Acute upper respiratory infection, unspecified (principal); Z20.822 Contact with and (suspected) exposure to COVID-19
CPT/HCPCS: 87081; 87426; 87804; 87880; 99213; G0463